=== PATIENT | female | born 1975 | race Caucasian/White ===

== ENCOUNTER 2016-09-10 14:06 | Emergency (ER) | payer MEDICAID ==
[~2016-09-10] VITALS: Ht 165.1 cm; Wt 67.0 kg
[2016-09-10 14:14] VITALS: Ht 165.1 cm; Wt 67.0 kg
--- NOTE | 2016-09-10 15:17 | ERA ---
ER Documentation Chief Complaint Date/Time DATE: 09/10/16 TIME: 15:17 Chief Complaint chest wall pain HPI The patient is a 40-year-old female, presenting to the ER because of substernal chest discomfort intermittently for the last couple days, worse with movement. She denies fever, chills, neck pain, chest pain with exertion or vomiting or diaphoresis, abdominal pain, dysuria, diarrhea, constipation. He does not smoke , drink Past Medical history: None Past surgical history: 3 C-sections ROS All systems reviewed and are negative except as per history of present illness. Medications Home Meds Active Scripts Ibuprofen* (Ibuprofen*) 600 Mg Tablet, 600 MG PO Q6, #20 TAB Prov:SAY AQUINO MD 09/10/16 Allergies Allergies: Coded Allergies: No Known Allergy (Unverified , 09/10/16) Physical Exam Vitals Vital Signs Date Time Temp Pulse Resp B/P Pulse Ox O2 Delivery O2 Flow Rate FiO2 09/10/16 16:10 77 18 128/68 99 Room Air 09/10/16 14:14 98.0 76 19 122/76 100 Physical Exam Const: No acute distress. Head: Atraumatic. Eyes: Normal Conjunctiva. ENT: Normal External Ears, Nose and Mouth. Neck: Full range of motion. No meningismus. Resp: Clear to auscultation bilaterally. Cardio: Regular rate and rhythm, no murmurs. Abd: Soft, non distended, normal bowel sounds, non tender. Skin: No petechiae or rashes. Back: No midline or flank tenderness. Ext: No cyanosis, or edema. Neur: Awake and alert. No focal deficit Psych: Normal Mood and Affect. Procedures/MDM EKG: Read by emergency physician Rate/Rhythm: Normal Sinus Rhythm 60 beats/min QRS, ST, T-waves: No ST elevation, no T inversion Impression: Normal EKG MEDICAL MAKING DECISION: The patient is a 40-year-old female, presenting with acute chest wall pain. The differential diagnoses considered include but are not limited to acute coronary syndrome, acute myocardial infarction, pericarditis, pulmonary embolism, aortic dissection, pneumonia, pleural effusion , pneumothorax, GERD, chest wall pain. Departure Diagnosis: Primary Impression: Chest wall pain Condition: Good Comments She was discharged with Motrin I discussed the findings with the patient. I advised the patient to follow-up with the primary physician in about 1-2 days, sooner if needed and return if any concern. SAY AQUINO MD Sep 10, 2016 15:17
[2016-09-10] MEDS ORDERED: IBUP-1542 PO (15:38)
[2016-09-10 16:10] VITALS: BP 128/68; PULSE 77; RESP 18
== END 2016-09-10 16:11 | disposition home or self-care (01) ==
LOC: FTE 14:06
DX: R07.89 Other chest pain (principal)
CPT/HCPCS: 93005; Z7502

== ENCOUNTER 2017-09-19 20:03 | Emergency (ER) | END 2017-09-20 00:24 | disposition home or self-care (01) ==

== ENCOUNTER 2018-06-24 11:15 | Emergency (ER) | payer MEDICAID ==
[~2018-06-24] VITALS: Wt 73.3 kg
[~2018-06-24 11:15] MED LIST: IBUP-1542 PO; NITR-58 PO; SODI126M NASAL
[2018-06-24] MEDS ORDERED: ACETAMINOPHEN 500 MG TAB PO STA (13:06)
[2018-06-24] MEDS ORDERED: ACET325T33 PO (13:13)
[2018-06-24] MEDS ORDERED: IBUP-1542 PO (13:13)
[2018-06-24] MEDS ORDERED: BENZ-6 PO (13:14)
[2018-06-24] MEDS ORDERED: CETI10CA PO (13:14)
[2018-06-24] MEDS ORDERED: IBUPROFEN 800 MG TAB PO ONE (13:30)
[2018-06-24 13:42] VITALS: BP 110/76; PULSE 76; RESP 16
--- NOTE | 2018-06-24 15:12 | ERD ---
ER Documentation Chief Complaint Chief Complaint BODY ACHES, FEVER, SORE THROAT, COUGH SINCE FRIDAY HPI 42-year-old female presents emerged department complaining of fever, body aches, sore throat, cough the past 3 days. Patient denies chest pain or shortness of breath. Denies vomiting or diarrhea. States she took ibuprofen yesterday. ROS All systems reviewed and are negative except as per history of present illness. Medications Home Meds Active Scripts Cetirizine Hcl* (Zyrtec*) 10 Mg Capsule, 10 MG PO DAILY, #30 TAB.CHEW Prov:PEGGY GUILLERMOC 06/24/18 Benzonatate* (Tessalon Perle*) 100 Mg Capsule, 100 MG PO Q8H PRN for COUGH, #30 CAP Prov:PEGGY GUILLERMOC 06/24/18 Acetaminophen* (Tylenol*) 325 Mg Tablet, 2 TAB PO Q6 PRN for PAIN AND OR ELEVATED TEMP, #30 TAB Prov:PEGGY GUILLERMOC 06/24/18 Ibuprofen* (Motrin*) 600 Mg Tab, 600 MG PO Q6H PRN for PAIN AND OR ELEVATED TEMP, #30 TAB Prov:PEGGY GUILLERMOC 06/24/18 Sodium Chloride (Saline Nasal Mist) 126 Ml Mist, 2 SPRAY NASAL Q2H PRN for NASAL CONGESTION, #1 BOTTLE Prov:FRANNIE SCRUGGS. [employer]ILLERY MAINTENANCE SUPERVISOR 09/19/17 Nitrofurantoin Monohyd Macrocr* (Macrobid*) 100 Mg Capsr, 100 MG PO BID for 7 Da ys, CAP Prov:FRANNIE SCRUGGS ARTILLERY MAINTENANCE SUPERVISOR 09/19/17 Ibuprofen* (Motrin*) 600 Mg Tab, 600 MG PO Q6H PRN for PAIN AND OR ELEVATED TEMP, #30 TAB Prov:FRANNIE SCRUGGS ARTILLERY MAINTENANCE SUPERVISOR 09/19/17 Ibuprofen* (Ibuprofen*) 600 Mg Tablet, 600 MG PO Q6, #20 TAB Prov:SAY AQUINO MD 09/10/16 Allergies Allergies: Coded Allergies: No Known Allergy (Unverified , 09/10/16) PMhx/Soc History of Surgery: Yes (C SECTION X'S 2) Anesthesia Reaction: No Hx Alcohol Use: No Hx Substance Use: No Hx Tobacco Use: No Smoking Status: Never smoker Physical Exam Vitals Vital Signs Date Temp Pulse Resp B/P (MAP) Pulse Ox O2 O2 Flow FiO2 Time Delivery Rate 06/24/18 99.1 76 16 110/76 97 Room Air 13:42 (87) 06/24/18 99.1 13:13 06/24/18 99.1 13:12 06/24/18 102.4 121 18 133/83 99 11:18 (100) Physical Exam Const: No acute distress Head: Atraumatic Eyes: Normal Conjunctiva ENT: Normal External Ears, Nose and Mouth. Neck: Full range of motion. No meningismus. Resp: Clear to auscultation bilaterally Cardio: Regular rate and rhythm, no murmurs Abd: Soft, non tender, non distended. Normal bowel sounds Skin: No petechiae or rashes Back: No midline or flank tenderness Ext: No cyanosis, or edema Neur: Awake and alert Psych: Normal Mood and Affect Results 24 hrs Current Medications Medications Dose Sig/Ale Start Time Status Last (Trade) Ordered Route PRN Stop Time Admin Dose Reason Admin Ibuprofen 800 mg ONCE ONCE 06/24/18 DC 06/24/18 (Motrin) PO 13:30 06/24/18 13:12 13:31 1,000 mg ONCE STAT 06/24/18 DC 06/24/18 Acetaminophen PO 13:06 06/24/18 13:13 (Tylenol 13:08 Tab) Procedures/MDM 42-year-old female presents to the ER with upper respiratory infection, which is most likely viral. It may influenza however it has been greater than 3 days for treatment is not necessary at this time. My clinical suspicion is low suspicion for pneumonia, strep pharyngitis, or pulmonary emergencies due to physical examination. Patient's lungs were clear on examination. hemodynamically stable for discharge. Prescription for ibuprofen, Tylenol Tessalon Perles was given to patient, discussed to return to the ED if not improving as expected or follow-up with a primary care physician. Patient understood and agreed with this plan. Departure Diagnosis: Primary Impression: Influenza-like symptoms Condition: Stable Patient Instructions: Influenza (Adult), Uri, Viral, No Abx (Adult) Referrals: NO PRIMARY,CARE PHYSICIAN (PCP) Additional Instructions: Visite a sonia pemberton para un EXAMEN. Regrese a estas instalaciones si no se mejora abdelrahman esperbamos o abdelrahman le dijimos. [place] toda la medicina jamilah y abdelrahman se le indic. Regrese a estas instalaciones si no se mejora abdelrahman esperbamos o abdelrahman le dijimos. PEGGY GUILLERMO PA-C Jun 24, 2018 15:12
== END 2018-06-24 13:48 | disposition home or self-care (01) ==
LOC: FTE 11:15
DX: J02.9 Acute pharyngitis, unspecified (principal)
CPT/HCPCS: Z7502; Z7610; 99282

== ENCOUNTER 2018-12-07 08:35 | Emergency (ER) | payer SELFPAY ==
[~2018-12-07] VITALS: Ht 167.6 cm; Wt 74.8 kg
[~2018-12-07 08:35] MED LIST changes: +ACET325T33 PO; +BENZ-6 PO; +CETI10CA PO
[2018-12-07 08:37] VITALS: BP 135/66; PULSE 59; RESP 18; Ht 167.6 cm; Wt 74.8 kg
[2018-12-07] MEDS ORDERED: IBUP-1542 PO (09:13)
--- NOTE | 2018-12-07 09:16 | ERD ---
ER Documentation Chief Complaint Chief Complaint NEEDS PELVIC ULTRASOUND HPI 43-year-old female presents with a referral from her community clinic asking for an transvaginal and treatments abdominal ultrasound for her ovarian cysts. Patient states that she has a history of ovarian cyst in got an ultrasound last year diagnosing her. She is being managed by [facility] by the PA Lizzie Avila. The PA is asking for an update ultrasound in order to assess the ovarian cyst and to monitor for any growth. She reports that she started having pain again when she had 6 8 days ago with her partner. She states that her pain is very mild 0 out of 10 right now and located at the right lower quadrant. She states that sex worsens her pain and her pain gets moderate relief with Tylenol and ibuprofen which is what they did prescribe her last year. She denies any bleeding. ROS All systems reviewed and are negative except as per history of present illness. Medications Home Meds Active Scripts Ibuprofen* (Motrin*) 600 Mg Tab, 600 MG PO Q6H PRN for PAIN AND OR ELEVATED TEMP, #30 TAB Prov:AUGIE YOU PA-C 12/07/18 Cetirizine Hcl* (Zyrtec*) 10 Mg Capsule, 10 MG PO DAILY, #30 TAB.CHEW Prov:PEGGY GUILLERMO PA-C 06/24/18 Benzonatate* (Tessalon Perle*) 100 Mg Capsule, 100 MG PO Q8H PRN for COUGH, #30 CAP Prov:PEGGY GUILLERMO PA-C 06/24/18 Acetaminophen* (Tylenol*) 325 Mg Tablet, 2 TAB PO Q6 PRN for PAIN AND OR ELEVATED TEMP, #30 TAB Prov:PEGGY GUILLERMO PA-C 06/24/18 Ibuprofen* (Motrin*) 600 Mg Tab, 600 MG PO Q6H PRN for PAIN AND OR ELEVATED TEMP, #30 TAB Prov:PEGGY GUILLERMO PA-C 06/24/18 Sodium Chloride (Saline Nasal Mist) 126 Ml Mist, 2 SPRAY NASAL Q2H PRN for NASAL CONGESTION, #1 BOTTLE Prov:FRANNIE SCRUGGS NP 09/19/17 Nitrofurantoin Monohyd Macrocr* (Macrobid*) 100 Mg Capsr, 100 MG PO BID for 7 Days, CAP Prov:FRANNIE SCRUGGS. DESIGN LEAD 09/19/17 Ibuprofen* (Motrin*) 600 Mg Tab, 600 MG PO Q6H PRN for PAIN AND OR ELEVATED TEMP, #30 TAB Prov:FRANNIE SCRUGGS. DESIGN LEAD 09/19/17 Ibuprofen* (Ibuprofen*) 600 Mg Tablet, 600 MG PO Q6, #20 TAB Prov:SAY AQUINO MD 09/10/16 Allergies Allergies: Coded Allergies: No Known Allergy (Unverified , 09/10/16) PMhx/Soc Medical and Surgical Hx: pt denies Medical Hx, pt denies Surgical Hx History of Surgery: Yes (C SECTION X'S 2) Anesthesia Reaction: No Hx Alcohol Use: No Hx Substance Use: No Hx Tobacco Use: No FmHx Family History: No diabetes Physical Exam Vitals Vital Signs Date Temp Pulse Resp B/P (MAP) Pulse Ox O2 O2 Flow FiO2 Time Delivery Rate 12/07/18 97.7 59 18 135/66 100 08:37 (89) Physical Exam Const: No acute distress Head: Atraumatic Eyes: Normal Conjunctiva ENT: Normal External Ears, Nose and Mouth. Neck: Full range of motion. No meningismus. Resp: Clear to auscultation bilaterally Cardio: Regular rate and rhythm, no murmurs Abd: Soft, non tender, non distended. Skin: No petechiae or rashes Back: No midline or flank tenderness Ext: No cyanosis, or edema Neur: Awake and alert Psych: Normal Mood and Affect Procedures/MDM ED COURSE: The patient was stable throughout ED course. I kept the patient informed of laboratory and diagnostic imaging results throughout the ED course. DIAGNOSTIC IMAGING: Read by radiologist. PROCEDURE: US Pelvis Non-OB with endovaginal scanning and Doppler CLINICAL INDICATION: Ovarian cyst TECHNIQUE: Images were taken during real time trans pelvic and endovaginal interrogation. Color-flow and Doppler interrogation of the ovaries was performed. COMPARISON: 09/19/2017 FINDINGS: Uterus: The uterus remains anteverted and normal in size measuring 7.9 cm in sagittal diameter and 5.0 x 3.6 cm in cross diameter. The endometrial stripe is thickened to 1.3 cm. A hypoechoic focus is again seen in the fundal endometrial cavity measuring approximately 8 mm in maximum cross diameter. A 1 cm in maximal diameter intramural fibroid is seen within the posterior uterine fundus centrally. Several Nabothian cysts are seen in the cervix with the largest measuring 1.7 cm in maximal diameter. Ovaries: The right ovary measures 3.5 x 3.5 x 2.9 cm and and contains a 2.8 x 2.3 x 1.8 cm complex cyst with internal septation and echogenic debris.. The left ovary measures 2.9 x 1.9 x 1.5 cm and appears unremarkable. Vascular flow is demonstrated in each ovary on Doppler. Adnexa: No adnexal mass is identified. Free intraperitoneal fluid: None visualized. IMPRESSION: 1. The uterus remains anteverted and normal in size with the endometrial stripe slightly less thick than seen previously now measuring 1.3 cm. A hypoechoic focus is again seen in the endometrial cavity measuring 8 mm in maximum cross diameter for which a submucosal fibroid or a polyp cannot be excluded. Correlation with a hysterosonogram may be useful. A 1 cm in maximal diameter intramural fibroid is again seen within the midline posterior uterine fundus. Nabothian cysts are again seen in the cervix. 2. Interval development of a complex 2.8 x 2.3 x 1.8 cm right ovarian cyst with internal septation and peripheral vascularity. A 6-12 week follow-up sonogram is recommended to assure resolution. The left ovary appears normal. Vascular flow is demonstrated in each ovary on Doppler. 3. No free fluid or adnexal mass is identified. Physician Agustín Date Time Electronically viewed and signed by Physician Agustín on 12/07/2018 10:24 MEDICATIONS GIVEN: [None.] MEDICAL DECISION MAKING: Patient is a 43-year-old female presents being referred by [facility] for a repeat ultrasound from 1 year ago to monitor her ovarian cyst. She states that her pain began again about a week ago after she was having intercourse with her partner. She denied any vaginal bleeding or any other symptoms. Previously last year when she had similar incidents of this she was ordered for an ultrasound which showed her ovarian cyst and fibroids and discharged with ibuprofen which helped her pain. An ultrasound was done today which showed an ovarian cyst on the right ovaries today which is where her pain is located in the right lower quadrant. H&P and other data not c/w emergent process (eg. ectopic , ovarian torsion, PID, tubo-ovarian abscess, fibroids, endometriosis, vulvovaginitis, uterine prolapse, ovarian cancer, uterine cancer, nephrolithiasis, pyelonephritis, UTI, appendicitis, dive rticulitis, bowel obstruction, perirectal abscess). Vital signs were reviewed. Patient is afebrile. Patient was not hypoxic. Patient was hemodynamically stable. PRESCRIPTION: Ibuprofen DISCHARGE: At this time, patient is stable for discharge and outpatient management. I have instructed the patient to follow-up with his/her primary care physician in 1-2 days. I have discussed with the patient the possibility of needing to see a specialist for further workup and imaging studies if symptoms persist. I have instructed the patient to promptly return to the ER for any new or worsening symptoms including increased pain, fever, nausea, vomiting, weakness or LOC. The patient and/or family expressed understanding of and agreement with this plan. All questions were answered. Home care instructions were provided. Disclaimer: Inadvertent spelling and grammatical errors are likely due to EHR /dictation software use and do not reflect on the overall quality of patient care. Also, please note that the electronic time recorded on this note does not necessarily reflect the actual time of the patient encounter. Departure Diagnosis: Primary Impression: Encounter for laboratory test Condition: Stable Patient Instructions: Ovarian Cyst Referrals: [facility] YOU HAVE RECEIVED A MEDICAL SCREENING EXAM AND THE RESULTS INDICATE THAT YOU DO NOT HAVE A CONDITION THAT REQUIRES URGENT TREATMENT IN THE EMERGENCY DEPARTMENT. FURTHER EVALUATION AND TREATMENT OF YOUR CONDITION CAN WAIT UNTIL YOU ARE SEEN IN YOUR DOCTORS OFFICE WITHIN THE NEXT 1-2 DAYS. IT IS YOUR RESPONSIBILITY TO MAKE AN APPOINTMENT FOR FOLOW-UP CARE. IF YOU HAVE A PRIMARY DOCTOR --you should call your primary doctor and schedule an appointment IF YOU DO NOT HAVE A PRIMARY DOCTOR YOU CAN CALL OUR PHYSICIAN REFERRAL HOTLINE AT IF YOU CAN NOT AFFORD TO SEE A PHYSICIAN YOU CAN CHOSE FROM THE FOLLOWING ON LICENSE OF [facility] [address] [facility] [address] [facility] [address] [facility] [address] [facility]. [facility] [address] [facility]. [facility]. [address] [facility]. [facility] YOU HAVE RECEIVED A MEDICAL SCREENING EXAM AND THE RESULTS INDICATE THAT YOU DO NOT HAVE A CONDITION THAT REQUIRES URGENT TREATMENT IN THE EMERGENCY DEPARTMENT. FURTHER EVALUATION AND TREATMENT OF YOUR CONDITION CAN WAIT UNTIL YOU ARE SEEN IN YOUR DOCTORS OFFICE WITHIN THE NEXT 1-2 DAYS. IT IS YOUR RESPONSIBILITY TO MAKE AN APPOINTMENT FOR FOLOW-UP CARE. IF YOU HAVE A PRIMARY DOCTOR --you should call your primary doctor and schedule and appointment IF YOU DO NOT HAVE A PRIMARY DOCTOR YOU CAN CALL OUR PHYSICIAN REFERRAL HOTLINE AT . IF YOU CAN NOT AFFORD TO SEE A PHYSICIAN YOU CAN CHOSE FROM THE FOLLOWING [facility] INSTITUTIONS: [facility] [address] [place] [address] [facility] [address] [place] [address] [facility] [address] [place] [address] Additional Instructions: Follow up with refering provider for further care Llame al doctor JOSE y enrrique olivia MICHELLE PARA DENTRO DE 1-2 YIP.Dgale a la secretaria que nosotros le instruimos hacer esta michelle.Avise o llame si scott condicin se empeora antes de la michelle. Regresa aqui si peor o no mejor. AUGIE YOU PA-C Dec 07, 2018 09:16
== END 2018-12-07 11:10 | disposition home or self-care (01) ==
LOC: FTE 08:35
DX: R10.31 Right lower quadrant pain (principal); Z00.00 Encounter for general adult medical examination without abnormal findings
CPT/HCPCS: 76830; 76856